=== PATIENT | male | born 1955 | race Caucasian/White ===

== ENCOUNTER → 2018-02-11 09:37 | Outpatient (CLI) | payer MEDICARE, MEDICAID, SELFPAY ==
[2018-02-11 12:24] LABS: Hematocrit 43.1 % (40-54); Hemoglobin 14.3 g/dl (13.0-16.5); Mean Corp Hgb Conc 33.2 g/gl (32-36); Mean Corpuscular Hgb 32.9 pg (27.0-32.0); Mean Corpuscular Volume 99.3 fL (80-94); Mean Platelet Vol. 10.3 fl (6.2-12.0); Platelet Count 223 K/mm3 (150-450); RBC Distribution Width SD 46.9 fl (35.1-43.9); Red Blood Count 4.34 M/mm3 (4.6-6.2); White Blood Count 6.6 K/mm3 (4.4-11.0)
[2018-02-11 12:27] LABS: Scan Indicated on CBC? Y/N NO
[2018-02-11 12:38] LABS: ALB/GLOB Ratio 0.9 RATIO (0.9-2.4); AST(SGOT) 13 U/L (15-37); Alanine Aminotransfer ALT/SGPT 27 U/L (16-61); Albumin, Serum 3.5 g/dL (3.2-5.0); Alkaline Phosphatase 50 U/L (45-117); Anion Gap 6 (5-15); BUN 15 mg/dL (7-18); BUN/Creat Ratio 17.9 RATIO (10-20); Calcium,Total 8.5 mg/dL (8.5-10.1); Chloride 104 mmol/L (98-107); Cholesterol 126 mg/dL (200); Creatinine, Serum 0.84 mg/dL (0.70-1.30); EST Glomerular Filtration Rate 98 mL/min (>60); Est Glom Filt Rate - Afr Amer 118 mL/min (>60); Globulin 3.8 g/dL (2.2-4.2); Glucose 170 mg/dL (74-106); High Density Lipoprotein 27 mg/dL; Potassium 4.2 mmol/L (3.5-5.1); Protein, Total 7.3 g/dL (6.4-8.2); Sodium Level 139 mmol/L (136-145); Thyroid Stim Hormone (TSH) 1.41 uIU/mL (0.358-3.74); Triglycerides 265 mg/dL; Very Low Density Lipoprotein 53 mg/dL (5-40)
== END ==
PROVIDERS: Family Provider Family Medicine; PCP Family Medicine; Visit Provider Family Medicine
DX: E53.8 Deficiency of other specified B group vitamins (principal); I10 Essential (primary) hypertension; E11.9 Type 2 diabetes mellitus without complications
CPT/HCPCS: 36415; 80053; 80061; 84443; 85027

== ENCOUNTER → 2018-11-11 22:34 | Outpatient (CLI) | payer MEDICARE, SELFPAY | PROVIDERS: Family Provider Family Medicine; PCP Family Medicine; Referring Provider Internal Medicine Critical Care Medicine; Visit Provider Internal Medicine Critical Care Medicine | DX: G47.33 Obstructive sleep apnea (adult) (pediatric) (principal) | CPT/HCPCS: 95811 ==

== ENCOUNTER → 2019-03-08 16:33 | Outpatient (CLI) | payer MEDICARE, SELFPAY ==
[2018-11-26 08:00] VITALS: BMI 47.0
--- NOTE | 2019-03-08 16:39 | RAD_ITS ---
STUDY: X-RAY CHEST REASON FOR EXAM: Male, 63 years old. Dyspnea TECHNIQUE: PA and lateral views of the chest. COMPARISON: None. FINDINGS: The lungs are clear and expanded. There is no demonstrated pleural abnormality. Normal size heart. Normal mediastinum and mars. Normal visualized pulmonary arteries. There is atherosclerotic calcification of the aortic arch . There are diffuse degenerative changes of the visualized thoracic spine. Normal visualized ribs, clavicles, and shoulders. There is no demonstrated abnormality of the visualized soft tissue structures of the upper abdomen. RAD/Chest PA and Lateral IMPRESSION: No evidence of acute cardiopulmonary disease. Electronically Signed: Shawn Duenas MD at 4:22 EDT Tel , Service support ,
[2019-03-08 18:18] LABS: BNP,B-Type NATRIURETIC PEPTIDE 9.8 pg/mL (0-100)
[2019-03-08 18:36] LABS: ALB/GLOB Ratio 0.9 RATIO (0.9-2.4); AST(SGOT) 17 U/L (15-37); Alanine Aminotransfer ALT/SGPT 30 U/L (16-61); Albumin, Serum 3.6 g/dL (3.2-5.0); Alkaline Phosphatase 58 U/L (45-117); Anion Gap 5 (5-15); BUN 10 mg/dL (7-18); BUN/Creat Ratio 11.1 RATIO (10-20); Calcium,Total 8.7 mg/dL (8.5-10.1); Chloride 105 mmol/L (98-107); EST Glomerular Filtration Rate 90 mL/min (>60); Est Glom Filt Rate - Afr Amer 109 mL/min (>60); Globulin 3.8 g/dL (2.2-4.2); Glucose 158 mg/dL (74-106); Protein, Total 7.4 g/dL (6.4-8.2); Sodium Level 139 mmol/L (136-145); Thyroid Stim Hormone (TSH) 1.59 uIU/mL (0.358-3.74)
[2019-03-08 18:52] LABS: Hematocrit 42.6 % (40-54); Hemoglobin 14.5 g/dl (13.0-16.5); Mean Corpuscular Hgb 32.4 pg (27.0-32.0); Mean Corpuscular Volume 95.1 fL (80-94); Mean Platelet Vol. 10.1 fl (6.2-12.0); Platelet Count 233 K/mm3 (150-450); RBC Distribution Width CV 12.8 % (11.6-14.6); Red Blood Count 4.48 M/mm3 (4.6-6.2); White Blood Count 8.2 K/mm3 (4.4-11.0)
[2019-03-08 19:34] LABS: Scan Indicated on CBC? Y/N NO
== END ==
PROVIDERS: Family Provider Family Medicine; PCP Family Medicine; Referring Provider Family Medicine; Visit Provider Family Medicine
DX: R06.00 Dyspnea, unspecified (principal); I50.9 Heart failure, unspecified; R07.9 Chest pain, unspecified
CPT/HCPCS: 36415; 71046; 80053; 83880; 84443; 84484; 85027

== ENCOUNTER → 2019-03-10 08:17 | Outpatient (CLI) | payer MEDICARE, SELFPAY ==
[2018-11-26 08:00] VITALS: BMI 47.0
[2019-03-10 10:39] LABS: Iron 77 ug/dL (65-175); Vitamin B12 523 pg/mL (211-911); Vitamin D,25 Hydroxy 27.5 ng/mL (29.95-100.01)
== END ==
PROVIDERS: Family Provider Family Medicine; PCP Family Medicine; Referring Provider Family Medicine; Visit Provider Family Medicine
DX: R53.83 Other fatigue (principal)
CPT/HCPCS: 36415; 82306; 82607; 83540; 84403

== ENCOUNTER → 2019-03-16 06:56 | Outpatient (CLI) | payer MEDICARE, SELFPAY ==
[2018-11-26 08:00] VITALS: BMI 47.0
--- NOTE | 2019-03-16 10:32 | STRESSREP_ITS ---
Stress Test Report Date: 03-16-19 Procedure: Exercise tolerance test/imaging study Indications: Chest pain; CAD; status post PCI Consent: Per the patient Procedure: The patient exercised on a Justin protocol for 3 minutes completing Stage I achieving a peak heart rate of 122 bpm (78 % predicted maximal heart rate) with a peak blood pressure 130/72 mmHg and a peak MET capacity of 4 METs. The baseline ECG demonstrated normal sinus rhythm. The peak exercise ECG demonstrated somatic/motion artifact with no obvious ECG changes at the heart rate achieved. There were no cardiac dysrhythmias pretest, during exercise, or recovery. The functional capacity was considered decreased. There was no complaint of chest discomfort during exercise or recovery. The examination was discontinued secondary to dyspnea and chest discomfort. Impression: 1. Technically adequate (percent predicted maximal heart rate greater than 85%) exercise tolerance test 2. Peak exercise ECG with somatic/motion artifact with no obvious ECG changes at the heart rate achieved 3. There were no cardiac dysrhythmias pretest, during exercise, or recovery 4. Nuclear images pending Myocardial perfusion imaging study: Technique: The patient was injected with 14.6 mCi of technetium 99m Cardiolite and subsequently rest SPECT Cardiolite nuclear imaging was obtained in the horizontal long, vertical long, and short axis views. The patient exercised on a Justin protocol for 3 minutes completing Stage I achieving a peak heart rate of 122 bpm (78 % predicted maximal heart rate) with a peak blood pressure 130/72 mmHg and a peak MET capacity of 4 METs. The patient was injected with 44.7 mCi of technetium 99m Cardiolite and subsequently stress SPECT Cardiolite nuclear imaging was obtained in the horizontal long, vertical long, and short axis views. A gated Cardiolite study at peak stress was obtained. Interpretation: Rest and stress SPECT Cardiolite nuclear imaging status post realignment, normalization, and attenuation correction, demonstrates the appearance of relative uniform tracer uptake and myocardial perfusion appearing within normal limits. There is end systolic thickening and brightening. The gated Cardiolite study demonstrates myocardial thickening and inward wall motion. The reported LVEF is 73 %. Impression: 1. Rest and stress SPECT Cardiolite nuclear imaging demonstrate relative uniform tracer uptake and myocardial perfusion appearing within normal limits at the heart rate achieved, however, myocardial perfusion changes compatible with stress-induced myocardial ischemia at a higher heart rate cannot necessarily be excluded. 2. The gated Cardiolite study reports an LVEF of 73 %. This note was generated with [email or web address] dictation software. It may contain incorrect words, spelling, and punctuation that were not noted in checking the note before signing.
== END ==
PROVIDERS: Family Provider Family Medicine; PCP Family Medicine; Referring Provider Family Medicine; Visit Provider Family Medicine
DX: R07.9 Chest pain, unspecified (principal)
CPT/HCPCS: 78452; 93017; A9500; A4216

== ENCOUNTER 2019-03-22 06:57 | Day surgery (SDC) | payer MEDICARE, SELFPAY ==
[2019-03-17 09:06] VITALS: BMI 48.2
--- NOTE | 2019-03-18 06:10 | HP_ITS ---
HPI HPI Surgical H&P: Yes Details: JUAN LUIS MCCLAIN, is a 63 M who presents to the office today for follow-up visit. He has no significant obstructive coronary artery disease following cardiac catheterization in 2007. He also has a history of hypertension, hyperlipidemia, MARILEE with CPAP therapy, and obesity. He also has preserved left ventricular ejection fraction. After his appointment approximately 1 year ago on 03/12/2018, it was recommended he undergo a echocardiogram and nuclear stress test to evaluate his fatigue. He completed his nuclear stress test yesterday on 03/16/2019, which was noted that an area of myocardial ischemia at a higher heart rate could not necessarily be excluded. He states worsening SOB with exertion. He acknowledges continual chest heaviness that feels like a weight. This is limiting his overall activity. He states a left temporal headache intermittently that improves with Advil or Tylenol. He states palpitations every once in a while. This is usually short lasting. He denies lightheadedness, dizziness, near syncope, or syncopal episodes. He denies edema or claudication issues. He denies orthopnea, PND, fever, chills, blood in urine, blood in stool, myalgia, or unexplainable fatigue. Intake Vital Signs 03/17/19 Height 5 ft 4 in 03/17/19 Weight: 281 lb 03/17/19 Body Mass Index (BMI) 48.2 03/17/19 Blood Pressure 116/71 03/17/19 Blood Pressure Location Lt brachial 03/17/19 Blood Pressure Position Sitting 03/17/19 Respiratory Rate 18 03/17/19 Pulse Rate 80 03/17/19 Pulse Source Monitor 03/17/19 Pulse Ox 95 Intake Visit Reasons: 1 Y FU (moved from [facility]) Steel Rod Buster Required: No Is patient in pain?: No Allergies codeine Allergy (Verified 03/17/19 09:06) PT NOT SURE WHAT HAPPENS finasteride Adverse Reaction (Severe, Verified 03/17/19 09:06) Impotence citalopram Adverse Reaction (Mild, Verified 03/17/19 09:06) fatigue Medications Aspirin [Aspirin, Baby] 81 mg PO DAILY@0800 11/20/15 [History Confirmed 03/17/19] Esomeprazole Mag Trihydrate [Nexium] 40 mg PO DAILY 11/20/15 [History Confirmed 03/17/19] Mometasone Furoate [Nasonex] 2 spray NASAL DAILY 11/20/15 [History Confirmed 03/17/19] Simvastatin [Zocor] 20 mg PO QHS 11/20/15 [History Confirmed 03/17/19] nitroglycerin 0.4 mg sublingual tablet 0.4 mg SUBLINGUAL Q5-15M PRN 10 Days #2880 tab 03/09/18 [History Confirmed 03/17/19] bupropion HCl XL 300 mg 24 hr tablet, extended release 300 mg PO ONCE 30 Days #30 tab 03/12/18 [History Confirmed 03/17/19] cholecalciferol (vitamin D3) 2,000 unit capsule 2,000 unit PO QDAY 03/12/18 [History Confirmed 03/17/19] loratadine 10 mg tablet 10 mg PO QDAY PRN 30 Days #30 tab 03/12/18 [History Confirmed 03/17/19] sitagliptin 50 mg-metformin 500 mg tablet 1 tab PO BID 03/12/18 [History Confirmed 03/17/19] tamsulosin 0.4 mg capsule 0.4 mg PO QHS 30 Days #30 cap 03/12/18 [History Confirmed 03/17/19] tizanidine 4 mg tablet 4 mg PO Q8H PRN 03/12/18 [History Confirmed 03/17/19] trazodone 100 mg tablet 100 mg PO QHS 30 Days #30 tab 03/12/18 [History Confirmed 03/17/19] furosemide 20 mg tablet 10 mg PO QDAY tab 03/17/19 [History Confirmed 03/17/19] sertraline 100 mg tablet 50 mg PO DAILY tab 03/17/19 [History Confirmed 03/17/19] PFSH Medical History Essential (primary) hypertension (Chronic) Ascending aorta dilatation (Chronic) Carotid bruit (Chronic) Nonrheumatic mitral (valve) prolapse (Chronic) Atherosclerotic heart disease of [place] coronary artery without angina pectoris (Chronic) HLD (hyperlipidemia) (Chronic) Obstructive sleep apnea (Chronic) Type 2 diabetes mellitus (Chronic) Hypokalemia (Resolved) Surgical History History of left heart catheterization (Resolved) History of rectal surgery (Resolved) Hx of LASIK (Resolved) Hx of fracture of leg (Resolved) Hx of hand surgery (Resolved) Hx of left cataract extraction (Resolved ~01/2015) Family History Father CVA (cerebral vascular accident) Mother CAD (coronary artery disease) Myocardial infarction Alzheimers disease Brother Myocardial infarction Heart disease Social History Smoking Status: Former smoker alcohol intake: never substance use type: does not use what type of physical activity do you participate in: none seatbelt use: always ROS Const Const: Positive for fatigue and headache(s); negative for weakness, body ache, fever(s) or chills ENT ENT: Positive for headache(s); negative for dizziness Cardio Chest Pain: Yes Palpitations: Yes Edema: None Muscle aches with walking: None Resp Respiratory: Positive for SOB with activity; negative for SOB at rest, SOB orthopnea\SOB lying down or paroxysmal nocturnal dyspnea GI GI: Negative nausea, vomiting blood/hematemesis, bright, red blood in stools or black,tarry stools : Negative for hematuria or frequent nighttime urination/ nocturia Musc Musc: Negative for muscle aches/ myalgia Skin Skin: Negative non-healing lesions or rash Neuro Neuro: Positive for headache(s); negative for dizziness, lightheadedness, near syncope, syncope, orthostatic symptoms or weakness Endo Endo: Positive for fatigue Allergy Allergy/Immunology: Negative for rash Cardiology Exam Const Appearance: cooperative, healthy appearing, comfortable and no acute distress Nutritional Appearance: well nourished and obese Orientation: alert, awake and oriented x3 Head Head: normal to inspection Ears: hearing grossly normal bilaterally Nose: external nose normal Face and Sinus: face symmetric Mouth: oral mucosae normal Eyes General: appearance normal, both eyes and all related structures Eyelids: eyelids normal EOM: EOM intact bilaterally Neck Neck: normal visual inspection and no JVD Carotids: normal carotid upstroke Chest Chest inspection: normal inspection of the chest, symmetric chest movement and normal respiratory effort; negative cough Auscultation: Bilateral: Clear to Auscultation Cardio Rate: regular rate Rhythm: regular rhythm Heart sounds: S1 normal and S2 normal; negative rub, gallop or murmur GI GI: normal to inspection and obese Neuro General: alert, awake, oriented x3 and CN's II-XI intact bilaterally Skin Skin: no rashes or lesions noted Extremities Pulses: Normal: Right Posterior Tibial Pulse, Left Posterior Tibial Pulse, Right Radial Pulse, Left Radial Pulse Lower Extremity Edema: None: Bilateral Psych Psychological: normal affect Assessment & Plan 1. Atherosclerosis of [place] coronary artery of [place] heart without angina pectoris I25.10 Plan - LLOYD Anthony His most recent stress test showed that an area of myocardial ischemia at a high workload could not be excluded. He did not complete echocardiogram that was recommended 1 year ago. Due to his worsening shortness of breath on exertion and chest heaviness in conjunction with his abnormal stress test it was recommend that he proceed with a left heart catheterization for further evaluation. This was discussed further with Dr. Hutton and plan will be to undergo a left heart catheterization. Based on results further recommendation will be made. Nilam mixon [phone] is best contact at this time. Orders Orders: Left Heart Cath/COR/LV Percut 03/17/19 2. Essential hypertension I10 Plan - LLOYD Anthony Patient's blood pressure is well-controlled. We will continue to monitor. We will not make any medication regimen changes. 3. Pure hypercholesterolemia E78.00 Plan - LLOYD Anthony Lipid panel from January 2018 showed cholesterol: 126, HDL: 27, LDL: 46, and triglyceride: 265. He will continue his current statin medication. Plan Detail Additional Comments - LLOYD Anthony Discussed the above patient with Dr. Hutton in Dr. Han's absence, he agrees with the plan of care. Thank you for allowing us to participate in the patients plan of care, if you have any questions please do not hesitate to call. This note was generated using a voice recognition system and there may be incorrect words, spelling or punctuation that were not noted when reviewing the office note prior to saving. Follow Up 12 Months ([employer]) Coding Level of Care Code Off vis,est,level 4 Diagnoses Atherosclerosis of [place] coronary artery of [place] heart without angina pectoris I25.10 ??[place] vs. transplanted heart: [place] heart Essential hypertension I10 ??Hypertension type: essential hypertension Pure hypercholesterolemia E78.00 ??Hyperlipidemia type: pure hypercholesterolemia Coding Level of Care Code Off vis,est,level 4 Diagnoses Atherosclerosis of [place] coronary artery of [place] heart without angina pectoris I25.10 ??[place] vs. transplanted heart: [place] heart Essential hypertension I10 ??Hypertension type: essential hypertension Pure hypercholesterolemia E78.00 ??Hyperlipidemia type: pure hypercholesterolemia Supplemental Info Supplemental Information Nuclear stress test from 03/16/2019: Impression: 1. Technically adequate (percent predicted maximal heart rate greater than 85%) exercise tolerance test 2. Peak exercise ECG with somatic/motion artifact with no obvious ECG changes at the heart rate achieved 3. There were no cardiac dysrhythmias pretest, during exercise, or recovery 4. Nuclear images pending Impression: 1. Rest and stress SPECT Cardiolite nuclear imaging demonstrate relative uniform tracer uptake and myocardial perfusion appearing within normal limits at the heart rate achieved, however, myocardial perfusion changes compatible with stress-induced myocardial ischemia at a higher heart rate cannot necessarily be excluded. 2. The gated Cardiolite study reports an LVEF of 73 %. Echocardiogram from 06/23/2011: Interpretation summary Left ventricular systolic function is normal. The estimated ejection fraction 65%. The left atrium is mildly enlarged. Trivial mitral valve insufficiency. Mild (1+) tricuspid valve insufficiency. Aortic sclerosis, no stenosis. Trivial aortic valve insufficiency. Trivial pulmonic valve insufficiency. Right ventricular systolic pressure estimated to be 29 mmHg. Heart catheterization from 06/12/2008: CONCLUSION 1. Angiographically normal left main coronary artery. 2. Left anterior descending artery which is angiographically normal. 3. Left circumflex artery which is large and dominant with no significant stenosis. 4. Right coronary artery which is nondominant with no high?grade stenosis. 5. Preserved left ventricular ejection fraction. Labs LDL Cholesterol 46 mg/dL (0-130) 02/11/18 HDL Cholesterol 27 mg/dL (40-) L 02/11/18 Triglycerides 265 mg/dL (-199) H 02/11/18 VLDL Cholesterol 53 mg/dL (5-40) H 02/11/18 Diagnostics Stress Test Nuclear Medicine 03/16/19 Stress Test 03/16/19 Chest X-Ray 03/08/19
[2019-03-21 08:39] VITALS: BMI 48.2
--- NOTE | 2019-03-31 14:28 | HP.PCM_ITS ---
History and Physical Date of Admission: 03/22/19 [facility] Surgical H&P: Yes Details: JUAN LUIS MCCLAIN, is a 63 M who presents to the office today for follow-up visit. He has no significant obstructive coronary artery disease following cardiac catheterization in 2007. He also has a history of hypertension, hyperlipidemia, MARILEE with CPAP therapy, and obesity. He also has preserved left ventricular ejection fraction. After his appointment approximately 1 year ago on 03/12/2018, it was recommended he undergo a echocardiogram and nuclear stress test to evaluate his fatigue. He completed his nuclear stress test yesterday on 03/16/2019, which was noted that an area of myocardial ischemia at a higher heart rate could not necessarily be excluded. He states worsening SOB with exertion. He acknowledges continual chest heaviness that feels like a weight. This is limiting his overall activity. He states a left temporal headache intermittently that improves with Advil or Tylenol. He states palpitations every once in a while. This is usually short lasting. He denies lightheadedness, dizziness, near syncope, or syncopal episodes. He denies edema or claudication issues. He denies orthopnea, PND, fever, chills, blood in urine, blood in stool, myalgia, or unexplainable fatigue. 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 Is patient in pain?: No Allergies codeine Allergy (Verified 03/17/19 09:06) PT NOT SURE WHAT HAPPENS finasteride Adverse Reaction (Severe, Verified 03/17/19 09:06) Impotence citalopram Adverse Reaction (Mild, Verified 03/17/19 09:06) fatigue Medications Aspirin [Aspirin, Baby] 81 mg PO DAILY@0800 11/20/15 [History Confirmed 03/17/19] Esomeprazole Mag Trihydrate [Nexium] 40 mg PO DAILY 12/29/15 [History Confirmed 03/17/19] Mometasone Furoate [Nasonex] 2 spray NASAL DAILY 11/20/15 [History Confirmed 03/17/19] Simvastatin [Zocor] 20 mg PO QHS 11/20/15 [History Confirmed 03/17/19] nitroglycerin 0.4 mg sublingual tablet 0.4 mg SUBLINGUAL Q5-15M PRN 10 Days #2880 tab 03/09/18 [History Confirmed 03/17/19] bupropion HCl XL 300 mg 24 hr tablet, extended release 300 mg PO ONCE 30 Days #30 tab 03/12/18 [History Confirmed 03/17/19] cholecalciferol (vitamin D3) 2,000 unit capsule 2,000 unit PO QDAY 03/12/18 [History Confirmed 03/17/19] loratadine 10 mg tablet 10 mg PO QDAY PRN 30 Days #30 tab 03/12/18 [History Confirmed 03/17/19] sitagliptin 50 mg-metformin 500 mg tablet 1 tab PO BID 03/12/18 [History Confirmed 03/17/19] tamsulosin 0.4 mg capsule 0.4 mg PO QHS 30 Days #30 cap 03/12/18 [History Confirmed 03/17/19] tizanidine 4 mg tablet 4 mg PO Q8H PRN 03/12/18 [History Confirmed 03/17/19] trazodone 100 mg tablet 100 mg PO QHS 30 Days #30 tab 03/12/18 [History Confirmed 03/17/19] furosemide 20 mg tablet 10 mg PO QDAY tab 03/17/19 [History Confirmed 03/17/19] sertraline 100 mg tablet 50 mg PO DAILY tab 03/17/19 [History Confirmed 03/17/19] PFSH Medical History Essential (primary) hypertension (Chronic) Ascending aorta dilatation (Chronic) Carotid bruit (Chronic) Nonrheumatic mitral (valve) prolapse (Chronic) Atherosclerotic heart disease of [place] coronary artery without angina pectoris (Chronic) HLD (hyperlipidemia) (Chronic) Obstructive sleep apnea (Chronic) Type 2 diabetes mellitus (Chronic) Hypokalemia (Resolved) Surgical History History of left heart catheterization (Resolved) History of rectal surgery (Resolved) Hx of LASIK (Resolved) Hx of fracture of leg (Resolved) Hx of hand surgery (Resolved) Hx of left cataract extraction (Resolved ~01/2015) Family History Father CVA (cerebral vascular accident) Mother CAD (coronary artery disease) Myocardial infarction Alzheimers disease Brother Myocardial infarction Heart disease Social History Smoking Status: Former smoker alcohol intake: never substance use type: does not use what type of physical activity do you participate in: none seatbelt use: always ROS Const Const: Positive for fatigue and headache(s); negative for weakness, body ache, fever(s) or chills ENT ENT: Positive for headache(s); negative for dizziness Cardio Chest Pain: Yes Palpitations: Yes Edema: None Muscle aches with walking: None Resp Respiratory: Positive for SOB with activity; negative for SOB at rest, SOB orthopnea\SOB lying down or paroxysmal nocturnal dyspnea GI GI: Negative nausea, vomiting blood/hematemesis, bright, red blood in stools or black,tarry stools : Negative for hematuria or frequent nighttime urination/ nocturia Musc Musc: Negative for muscle aches/ myalgia Skin Skin: Negative non-healing lesions or rash Neuro Neuro: Positive for headache(s); negative for dizziness, lightheadedness, near syncope, syncope, orthostatic s ymptoms or weakness Endo Endo: Positive for fatigue Allergy Allergy/Immunology: Negative for rash Cardiology Exam Const Appearance: cooperative, healthy appearing, comfortable and no acute distress Nutritional Appearance: well nourished and obese Orientation: alert, awake and oriented x3 Head Head: normal to inspection Ears: hearing grossly normal bilaterally Nose: external nose normal Face and Sinus: face symmetric Mouth: oral mucosae normal Eyes General: appearance normal, both eyes and all related structures Eyelids: eyelids normal EOM: EOM intact bilaterally Neck Neck: normal visual inspection and no JVD Carotids: normal carotid upstroke Chest Chest inspection: normal inspection of the chest, symmetric chest movement and normal respiratory effort; negative cough Auscultation: Bilateral: Clear to Auscultation Cardio Rate: regular rate Rhythm: regular rhythm Heart sounds: S1 normal and S2 normal; negative rub, gallop or murmur GI GI: normal to inspection and obese Neuro General: alert, awake, oriented x3 and CN's II-XI intact bilaterally Skin Skin: no rashes or lesions noted Extremities Pulses: Normal: Right Posterior Tibial Pulse, Left Posterior Tibial Pulse, Right Radial Pulse, Left Radial Pulse Lower Extremity Edema: None: Bilateral Psych Psychological: normal affect Assessment & Plan 1. Atherosclerosis of [place] coronary artery of [place] heart without angina pectoris I25.10 Plan - LLOYD Anthony His most recent stress test showed that an area of myocardial ischemia at a high workload could not be excluded. He did not complete echocardiogram that was recommended 1 year ago. Due to his worsening shortness of breath on exertion and chest heaviness in conjunction with his abnormal stress test it was recommend that he proceed with a left heart catheterization for further evaluation. This was discussed further with Dr. Hutton and plan will be to undergo a left heart catheterization. Based on results further recommendation will be made. Nilam at [phone] is best contact at this time. Orders Orders: Left Heart Cath/COR/LV Percut 03/17/19 2. Essential hypertension I10 Plan - LLOYD Anthony Patient's blood pressure is well-controlled. We will continue to monitor. We will not make any medication regimen changes. 3. Pure hypercholesterolemia E78.00 Plan - LLOYD Anthony Lipid panel from January 2018 showed cholesterol: 126, HDL: 27, LDL: 46, and triglyceride: 265. He will continue his current statin medication. Plan Detail Additional Comments - LLOYD Anthony Discussed the above patient with Dr. Hutton in Dr. Han's absence, he agrees with the plan of care. Thank you for allowing us to participate in the patients plan of care, if you have any questions please do not hesitate to call. This note was generated using a voice recognition system and there may be incorrect words, spelling or punctuation that were not noted when reviewing the office note prior to saving. 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 transplanted heart: [place] heart Essential hypertension I10 ??Hypertension type: essential hypertension Pure hypercholesterolemia E78.00 ??Hyperlipidemia type: pure hypercholesterolemia Coding Level of Care Code Off vis,est,level 4 Diagnoses Atherosclerosis of [place] coronary artery of [place] heart without angina pectoris I25.10 ??[place] vs. transplanted heart: [place] heart Essential hypertension I10 ??Hypertension type: essential hypertension Pure hypercholesterolemia E78.00 ??Hyperlipidemia type: pure hypercholesterolemia Supplemental Info Supplemental Information Nuclear stress test from 03/16/2019: Impression: 1. Technically adequate (percent predicted maximal heart rate greater than 85%) exercise tolerance test 2. Peak exercise ECG with somatic/motion artifact with no obvious ECG changes at the heart rate achieved 3. There were no cardiac dysrhythmias pretest, during exercise, or recovery 4. Nuclear images pending Impression: 1. Rest and stress SPECT Cardiolite nuclear imaging demonstrate relative uniform tracer uptake and myocardial perfusion appearing within normal limits at the heart rate achieved, however, myocardial perfusion changes compatible with stress-induced myocardial ischemia at a higher heart rate cannot necessarily be excluded. 2. The gated Cardiolite study reports an LVEF of 73 %. Echocardiogram from 06/23/2011: Interpretation summary Left ventricular systolic function is normal. The estimated ejection fraction 65%. The left atrium is mildly enlarged. Trivial mitral valve insufficiency. Mild (1+) tricuspid valve insufficiency. Aortic sclerosis, no stenosis. Trivial aortic valve insufficiency. Trivial pulmonic valve insufficiency. Right ventricular systolic pressure estimated to be 29 mmHg. Heart catheterization from 06/12/2008: CONCLUSION 1. Angiographically normal left main coronary artery. 2. Left anterior descending artery which is angiographically normal. 3. Left circumflex artery which is large and dominant with no significant stenosis. 4. Right coronary artery which is nondominant with no high?grade stenosis. 5. Preserved left ventricular ejection fraction. Labs LDL Cholesterol 46 mg/dL (0-130) 02/11/18 HDL Cholesterol 27 mg/dL (40-) L 02/11/18 Triglycerides 265 mg/dL (-199) H 02/11/18 VLDL Cholesterol 53 mg/dL (5-40) H 02/11/18 Diagnostics Stress Test Nuclear Medicine 03/16/19 Stress Test 03/16/19 Chest X-Ray 03/08/19 03/21/19 1159 <Electronically signed by Lane DESAI> Date: Time: Lane DESAI I have re-examined the patient on March 22, 2019. There are no clinical changes since date of exam in the office.
--- NOTE | 2019-04-27 14:55 | CL.D_ITS ---
Patient Name: JUAN LUIS MCCLAIN Study Date: 03/22/2019 Performing: Bar Hutton MD Ht: 64.17 inches 163 cm : 1955 Wt: 279.99 lbs 127 kg Age: 63 Gender: male BSA: 2.26 PROCEDURE(S) PERFORMED CG99-RBU/COR/LV CLINICAL PROFILE AND INDICATIONS Indications: Suspected CAD Heart Failure: None Stress/Imaging Stress Test w/SPECT MPI: Yes Result: Positive Intermediate RiskStress Test with SP ECT MPI: Positive Intermediate Risk CAD Presentations: Unstable angina. CONCLUSIONS Non obstructive coronary arteries Normal LV size, wall motion,and systolic function Mild to moderate Aortic stenosis cannot be excluded RECOMMENDATIONS 2d echo to evaluate aortic valve DESCRIPTION OF PROCEDURE The patient arrived to the procedure lab. The risks and benefits of the procedure as well as a full d escription of our services here and current unavailability of surgical backup were fully explained to the patient and/or their significant other prior to the catheterization. The Timeout was completed, verifying the correct patient and procedure. The patient's procedural site was prepped and draped in the usual fashion. Local anesthetic was given subcutaneously to right radial region with Lidocaine 2% . Using a modified Seldinger technique, arterial access was obtained via the right radial artery, a 6 Fr sheath was inserted. Left Coronary Artery selective angiography was performed in multiple views u sing a 5 Fr. JL3.5 catheter. Right Coronary Artery selective angiography was then performed in multip le views using a 5 Fr. JR 4 catheter. Left Ventriculography was performed in CUELLAR projection using a 5 Fr. JR4. LV to AO pullback pressures were then recorded.The arterial sheath was pulled and a TR Band was applied for hemostasis w/ 12ml air CORONARY ANGIOGRAPHY DOMINANCE: Left Dominant LEFT HEART ASSESSMENT Left Ventricular Ejection Fraction: by LV Gram 65 % Normal LV wall motion Normal Left Ventricular systolic function LEFT MAIN: Angiographically normal LEFT ANTERIOR DECENDING ARTERY: Mild luminal irregularities CIRCUMFLEX ARTERY: Angiographically normal RIGHT CORONARY ARTERY: Mild luminal irregularities VALVE FINDINGS: Aortic Valve Stenosis - possible mild to moderate with a peak to peak gradient of about 20mmHg. Th is could be artifactual and a 2d echo is recommended to evaluate this further. No Mitral Insufficency COMPLICATIONS No Complications PROCEDURE MEDICATIONS Versed 1 mg IV Fentanyl 50 mcg IV Oxygen: 2 L/min via nasal cannula Heparin IA 03/22/2019 08:55:35 Verapamil 2.5mg, Ntg 100mcgs, 3000 units of Heparin IA 03/22/2019 09:13:47 IV Bolus: .9 NaCl 250 ml total 03/22/2019 09:19:58 SUMMARY OF HEMODYNAMIC DATA Time AIR REST ECG 07:16:51 LV 119/-7, -2 09:16:05 LV 114/-3, 8 09:16:11 LVp 127/-14, 6 09:16:29 AOp 89/58 (69) 09:16:34 AO 90/58 (70) SA 09:16:42 LV 136/-8, 15 09:26:21 LV 134/-10, 15 09:26:28 LV 127/-6, 14 09:28:25 LVp 129/-7, 14 09:28:34 AOp 102/59 (76) 09:28:39 Signed By Bar Hutton MD On 03/22/2019 10:08:07 AM Bar Hutton MD
== END 2019-03-22 12:09 | disposition home or self-care (01) ==
PROVIDERS: Family Provider Family Medicine; PCP Family Medicine; Referring Provider Internal Medicine Cardiovascular Disease; Visit Provider Internal Medicine Cardiovascular Disease
DX: I25.10 Atherosclerotic heart disease of native coronary artery without angina pectoris (principal); I10 Essential (primary) hypertension; E78.00 Pure hypercholesterolemia, unspecified; I07.1 Rheumatic tricuspid insufficiency; I70.0 Atherosclerosis of aorta; R94.39 Abnormal result of other cardiovascular function study; R06.02 Shortness of breath; G47.33 Obstructive sleep apnea (adult) (pediatric); E11.9 Type 2 diabetes mellitus without complications; R09.89 Other specified symptoms and signs involving the circulatory and respiratory systems; Z87.891 Personal history of nicotine dependence; Z88.5 Allergy status to narcotic agent; Z79.82 Long term (current) use of aspirin
CPT/HCPCS: 93458; 99152; 99153; J7040; Q9967; C1769; C1894

== ENCOUNTER → 2019-04-06 08:47 | Outpatient (CLI) | payer MEDICARE, SELFPAY ==
[2019-03-25 10:06] VITALS: BMI 48.2
[2019-04-05 13:19] VITALS: BMI 47.5
[2019-04-06 09:45] VITALS: PULSE 101; PULSE 102; PULSE 103; PULSE 88; PULSE 89; PULSE 99; O2SAT 95; O2SAT 96; O2SAT 97
--- NOTE | 2019-04-06 15:12 | PCM.PSN.6M ---
PSN 6 Minute Walk Test - 6 Minute Walk Test 6 Minute Walk Test: 6 Minute Walk Test PSN:6-Minute Walk Test Start: 04/06/19 09:44 Freq: Status: Active Protocol: [id number].6MINW Document 04/06/19 09:45 RICCI (Rec: 04/06/19 09:51 RICCI [id number]) 6 Minute Walk Test Date Performed 04/06/19 Time Performed 09:00 Height 5 ft 5 in Weight: 122.924 kg Weight in Pounds 271.[address]: Estevan Monsivais Assistive device used: None Pre-test Oxygen Delivery Method Room Air Pulse Ox (%) 97 Pulse Rate (60-100 beats/min) 88 Dyspnea Bianka Scale (0-10) 1 Exertion Bianka Scale (6-20) 6 1st minute Oxygen Delivery Method Room Air Pulse Ox (%) 96 Pulse Rate (60-100 beats/min) 102 H 2nd minute Oxygen Delivery Method Room Air Pulse Ox (%) 95 Pulse Rate (60-100 beats/min) 101 H 3rd minute Oxygen Delivery Method Room Air Pulse Ox (%) 95 Pulse Rate (60-100 beats/min) 99 Number of Rests Taken 1 4th minute Oxygen Delivery Method Room Air Pulse Ox (%) 97 Pulse Rate (60-100 beats/min) 103 H 5th minute Oxygen Delivery Method Room Air Pulse Ox (%) 95 Pulse Rate (60-100 beats/min) 99 6th minute Oxygen Delivery Method Room Air Pulse Ox (%) 96 Pulse Rate (60-100 beats/min) 103 H Dyspnea Bianka Scale (0-10) 4 Exertion Bianka Scale (6-20) 13 Post-test Oxygen Delivery Method Room Air Pulse Ox (%) 97 Pulse Rate (60-100 beats/min) 89 Full Laps Walked 10 Partial Lap, Number of Tiles Walked 10 Total Distance Walked (ft) 600 - Interpretation Interpretation: The patient was able to ambulate 600 feet over the course of 6 minutes on room air with the assistance of one break, but no assistive devices. Patient experienced no significant desaturation or tachycardia during testing. These findings are consistent with a musculoskeletal limitation exercise tolerance. - Recommendations Recommendations: No supplemental oxygen is indicated at this time.
== END ==
PROVIDERS: Family Provider Family Medicine; PCP Family Medicine; Referring Provider Nurse Practitioner Acute Care; Visit Provider Nurse Practitioner Acute Care
DX: R06.00 Dyspnea, unspecified (principal)
CPT/HCPCS: 94618

== ENCOUNTER → 2019-04-13 10:48 | Outpatient (CLI) | payer MEDICARE, SELFPAY ==
[2019-03-25 10:06] VITALS: BMI 48.2
[2019-04-11 09:23] VITALS: BMI 46.5
--- NOTE | 2019-04-13 10:50 | ECHOCS_ITS ---
Reason For Study: CAD/ASHD Procedure This was a 2D Doppler, Color Flow transthoracic echocardiogram. Exam performed in department. Left Ventricle Normal LV size. Left ventricular systolic function is normal. The estimated ejection fraction is 60 %. Stage 1 diastolic dysfunction. No regional wall motion abnormalities noted. Right Ventricle Normal RV size. Normal systolic function. Atria Normal left atrium. Normal right atrium. Mitral Valve Normal mitral valve. Tricuspid Valve The tricuspid valve is not well visualized. Aortic Valve The aortic valve is not well visualized. Pulmonic Valve The pulmonic valve is not well visualized. Great Vessels Normal aortic root. The pulmonary artery is normal size. Normal inferior vena cava. Pericardium/Pleural No pericardial effusion. Medication Diluted definity 3ml given slow IV push to enhance endocardial definition. MMode/2D Measurements & Calculations LVIDd: 4.7 cm IVSd: 1.1 cm Ao root diam: 3.1 cm LVIDs: 3.1 cm LVPWd: 0.97 cm RVDd: 3.9 cm FS: 33.0 % LAV(MOD-bp): 31.9 ml LVAd ap4: 29.1 cm2 SV(MOD-sp4): 56.1 ml LAV(MOD-bp) Indexed: 14.4 ml/m2 EDV(MOD-sp4): 86.9 ml LAV(MOD-sp2): 37.1 ml EDV(sp4-el): 89.2 ml LAV(MOD-sp4): 26.4 ml LVAs ap4: 15.6 cm2 ESV(MOD-sp4): 30.8 ml ESV(sp4-el): 32.0 ml EF(MOD-sp4): 64.6 % EF(sp4-el): 64.1 % SV(sp4-el): 57.2 ml LA A4 area: 13.3 cm2 LA dimension(2D): 3.2 cm RA A4 area: 15.0 cm2 Doppler Measurements & Calculations MV E max tu: 63.0 cm/sec Lat Peak E' Tu: 7.6 cm/sec Med Peak E' Tu: 5.0 cm/sec MV A max tu: 83.4 cm/sec E/E' lat: 8.3 E/E' med: 12.5 MV E/A: 0.76 Ao V2 max: 168.9 cm/sec LV V1 max: 136.6 cm/sec PA V2 max: 119.1 cm/sec Ao max P.4 mmHg LV V1 max P.5 mmHg Ao V2 mean: 107.2 cm/sec Ao mean P.3 mmHg Ao V2 VTI: 26.8 cm TR max tu: 236.7 cm/sec TR max P.4 mmHg Interpretation Summary Normal LV size. Left ventricular systolic function is normal. The estimated ejection fraction is 60 %. Stage 1 diastolic dysfunction. Contrast injection was performed. Ordering Physician: Guillermo Han Referring Physician: Chin Ackerman Performed By: Kylie Dent, PINKY, RVT
== END ==
PROVIDERS: Family Provider Family Medicine; PCP Family Medicine; Referring Provider Nurse Practitioner Acute Care; Visit Provider Nurse Practitioner Acute Care
DX: I34.1 Nonrheumatic mitral (valve) prolapse (principal)
CPT/HCPCS: 93306; Q9957; A4216; C8929

== ENCOUNTER → 2019-05-03 08:55 | Outpatient (CLI) | payer MEDICARE, SELFPAY ==
[2019-04-11 09:23] VITALS: BMI 46.5
--- NOTE | 2019-05-03 09:00 | CT_ITS ---
STUDY: CT CHEST WITHOUT CONTRAST REASON FOR EXAM: Male, 64 years old. Shortness of breath RADIATION DOSAGE (If Supplied By Facility): DLP = ( 740.12 ) mGycm TECHNIQUE: Transaxial imaging was performed without the administration of intravenous contrast material. Coronal and sagittal reformatted images were created. Individualized dose optimization techniques were used for this CT. COMPARISON: None FINDINGS: There are no pulmonary infiltrates or pleural effusions. There is a right lung base 1.3 cm nodule with central calcification, consistent in appearance with granuloma. There is no pneumothorax. The heart and pericardium are within normal limits. There is no thoracic lymphadenopathy. A right hilar calcified lymph node is present. There is no evidence of thoracic aortic aneurysm. Images through the upper abdomen demonstrate no significant abnormality. There are no destructive osseous lesions. CT/Chest without Contrast IMPRESSION: Unremarkable noncontrast CT of the chest. Right lung base granuloma. Electronically Signed: Kenneth Sol, at 21:19 EDT Tel , Service support ,
== END ==
PROVIDERS: Family Provider Family Medicine; PCP Family Medicine; Referring Provider Surgery; Visit Provider Surgery
DX: R06.02 Shortness of breath (principal); K44.9 Diaphragmatic hernia without obstruction or gangrene
CPT/HCPCS: 71250

== ENCOUNTER → 2019-06-29 14:41 | Outpatient (CLI) | payer MEDICARE, SELFPAY ==
[2019-04-11 09:23] VITALS: BMI 46.5
== END ==
PROVIDERS: Family Provider Family Medicine; PCP Family Medicine; Visit Provider Nurse Practitioner Acute Care
DX: Z46.89 Encounter for fitting and adjustment of other specified devices (principal)

== ENCOUNTER → 2020-04-10 08:57 | Outpatient (CLI) | payer MEDICARE, SELFPAY ==
[2020-03-13 08:06] VITALS: BMI 46.3
[2020-04-10 10:20] LABS: Hematocrit 41.7 % (40-54); Hemoglobin 13.6 g/dL (13.0-16.5); Mean Corp Hgb Conc 32.6 g/dL (32-36); Mean Corpuscular Hgb 32.1 pg (27.0-32.0); Mean Corpuscular Volume 98.3 fL (80-94); Mean Platelet Vol. 10.1 fl (6.2-12.0); Platelet Count 235 K/mm3 (150-450); RBC Distribution Width CV 12.9 % (11.6-14.6); RBC Distribution Width SD 46.1 fl (35.1-43.9); Red Blood Count 4.24 M/mm3 (4.6-6.2); White Blood Count 7.7 K/mm3 (4.4-11.0)
[2020-04-10 10:36] LABS: Vitamin B12 481 pg/mL (211-911); Vitamin D,25 Hydroxy 62.5 ng/mL
[2020-04-10 10:37] LABS: BNP,B-Type NATRIURETIC PEPTIDE 9.8 pg/mL (0-100)
[2020-04-10 10:47] LABS: AST(SGOT) 21 U/L (15-37); Alanine Aminotransfer ALT/SGPT 31 U/L (16-61); Albumin, Serum 3.6 g/dL (3.2-5.0); Alkaline Phosphatase 61 U/L (45-117); Anion Gap 7 (5-15); BUN 17 mg/dL (7-18); BUN/Creat Ratio 20.9 RATIO (10-20); Calcium,Total 9.5 mg/dL (8.5-10.1); Chloride 105 mmol/L (98-107); Cholesterol 129 mg/dL (200); Creatinine, Serum 0.81 mg/dL (0.70-1.30); EST Glomerular Filtration Rate 101 mL/min (>60); Est Glom Filt Rate - Afr Amer 122 mL/min (>60); Globulin 3.6 g/dL (2.2-4.2); Glucose 184 mg/dL (74-106); High Density Lipoprotein 29 mg/dL; PSA,Total - Annual Screen 0.22 ng/mL (0.00-4.00); Potassium 4.1 mmol/L (3.5-5.1); Protein, Total 7.2 g/dL (6.4-8.2); Sodium Level 139 mmol/L (136-145); Thyroid Stim Hormone (TSH) 1.55 uIU/mL (0.358-3.74); Triglycerides 200 mg/dL; Very Low Density Lipoprotein 40 mg/dL (5-40)
== END ==
PROVIDERS: PCP Family Medicine; Visit Provider Family Medicine
DX: E56.9 Vitamin deficiency, unspecified (principal); E11.9 Type 2 diabetes mellitus without complications; N40.0 Benign prostatic hyperplasia without lower urinary tract symptoms; I50.9 Heart failure, unspecified; Z12.5 Encounter for screening for malignant neoplasm of prostate; E53.8 Deficiency of other specified B group vitamins
CPT/HCPCS: 36415; 80053; 80061; 82306; 82607; 83880; 84153; 84443; 85027; G0103

== ENCOUNTER → 2020-06-26 09:39 | Outpatient (CLI) | payer MEDICARE, SELFPAY ==
[2020-03-13 08:06] VITALS: BMI 46.3
[2020-06-26 12:30] LABS: Erythrocyte Sedimentation Rate 14 mm/hr (0-20)
[2020-06-26 12:33] LABS: Hematocrit 40.2 % (40-54); Hemoglobin 13.1 g/dL (13.0-16.5); Mean Corp Hgb Conc 32.6 g/dL (32-36); Mean Corpuscular Hgb 33.6 pg (27.0-32.0); Mean Corpuscular Volume 103.1 fL (80-94); Mean Platelet Vol. 10.1 fl (6.2-12.0); Platelet Count 216 K/mm3 (150-450); RBC Distribution Width CV 13.1 % (11.6-14.6); RBC Distribution Width SD 48.4 fl (35.1-43.9); White Blood Count 5.9 K/mm3 (4.4-11.0)
[2020-06-26 12:46] LABS: Vitamin B12 604 pg/mL (211-911); Vitamin D,25 Hydroxy 67.1 ng/mL
[2020-06-26 12:55] LABS: ALB/GLOB Ratio 0.9 RATIO (0.9-2.4); AST(SGOT) 14 U/L (15-37); Alanine Aminotransfer ALT/SGPT 27 U/L (16-61); Albumin, Serum 3.3 g/dL (3.2-5.0); Alkaline Phosphatase 58 U/L (45-117); Anion Gap 5 (5-15); BUN 11 mg/dL (7-18); BUN/Creat Ratio 11.9 RATIO (10-20); CRP 3.66 mg/L (0.0-3.0); Calcium,Total 8.4 mg/dL (8.5-10.1); Chloride 107 mmol/L (98-107); Creatinine, Serum 0.93 mg/dL (0.70-1.30); EST Glomerular Filtration Rate 86 mL/min (>60); Est Glom Filt Rate - Afr Amer 104 mL/min (>60); Ferritin 49 ng/mL (26-388); Globulin 3.5 g/dL (2.2-4.2); Glucose 287 mg/dL (74-106); Iron 62 ug/dL (65-175); Magnesium 2.2 mg/dL (1.6-2.6); Potassium 4.1 mmol/L (3.5-5.1); Protein, Total 6.8 g/dL (6.4-8.2); Sodium Level 139 mmol/L (136-145); Thyroid Stim Hormone (TSH) 0.98 uIU/mL (0.358-3.74)
[2020-06-27 14:39] LABS: ANTINUCLEAR ANTIBODIES DIRECT Negative (Negative)
== END ==
LOC: MFPLAB 09:42
PROVIDERS: PCP Family Medicine; Referring Provider Family Medicine; Visit Provider Family Medicine
DX: G57.93 Unspecified mononeuropathy of bilateral lower limbs (principal)
CPT/HCPCS: 36415; 80053; 82306; 82607; 82728; 83540; 83735; 84443; 85027; 85652; 86038; 86140

== ENCOUNTER → 2020-11-29 08:45 | Outpatient (CLI) | payer MEDICARE, SELFPAY ==
[2020-03-13 08:06] VITALS: BMI 46.3
--- NOTE | 2020-11-29 09:05 | RAD_ITS ---
STUDY: X-RAY - ABDOMEN/PELVIS REASON FOR EXAM: Male, 65 years old. Abdominal pain and bloating. Patient describes a hernia. TECHNIQUE: AP supine and upright views of the abdomen and pelvis. COMPARISON: CT of the abdomen, 05/11/2012. FINDINGS: Normal visualized lung bases. There is an unremarkable bowel gas pattern. There is no demonstrated free abdominal air. There is a vague calcification right upper quadrant. Question gallstone. Normal appearing liver spleen and kidneys. Normal soft tissue structures. There are diffuse degenerative changes of the visualized lumbar spine. RAD/Abd Inc Decub and/or Erect IMPRESSION: 1. Question gallstone. 2. No evidence of acute intra-abdominal or pelvic process. 3. Degenerative changes lumbar spine Electronically Signed: Hugo Pitt DO at 17:31 EST Tel [phone], Service support ,
[2020-11-29 10:38] LABS: Erythrocyte Sedimentation Rate 8 mm/hr (0-20)
[2020-11-29 10:40] LABS: Hematocrit 40.6 % (40-54); Hemoglobin 13.6 g/dL (13.0-16.5); Mean Corp Hgb Conc 33.5 g/dL (32-36); Mean Corpuscular Hgb 32.5 pg (27.0-32.0); Mean Corpuscular Volume 97.1 fL (80-94); Mean Platelet Vol. 10.1 fl (6.2-12.0); Platelet Count 235 K/mm3 (150-450); RBC Distribution Width CV 12.5 % (11.6-14.6); RBC Distribution Width SD 44.5 fl (35.1-43.9); Red Blood Count 4.18 M/mm3 (4.6-6.2); White Blood Count 6.7 K/mm3 (4.4-11.0)
[2020-11-29 10:57] LABS: BUN 18 mg/dL (7-18); Creatinine, Serum 0.83 mg/dL (0.70-1.30); Glucose 171 mg/dL (74-106)
[2020-11-29 10:58] LABS: ALB/GLOB Ratio 0.9 RATIO (0.9-2.4); AST(SGOT) 10 U/L (15-37); Alanine Aminotransfer ALT/SGPT 31 U/L (16-61); Albumin, Serum 3.4 g/dL (3.2-5.0); Alkaline Phosphatase 62 U/L (45-117); Anion Gap 1 (5-15); BUN/Creat Ratio 21.8 RATIO (10-20); Calcium,Total 8.5 mg/dL (8.5-10.1); Chloride 107 mmol/L (98-107); Cholesterol 133 mg/dL (200); EST Glomerular Filtration Rate 99 mL/min (>60); Est Glom Filt Rate - Afr Amer 119 mL/min (>60); Globulin 3.6 g/dL (2.2-4.2); High Density Lipoprotein 29 mg/dL; Potassium 3.9 mmol/L (3.5-5.1); Sodium Level 139 mmol/L (136-145); Thyroid Stim Hormone (TSH) 2.32 uIU/mL (0.358-3.74); Triglycerides 248 mg/dL; Very Low Density Lipoprotein 50 mg/dL (5-40)
== END ==
PROVIDERS: PCP Family Medicine; Referring Provider Family Medicine; Visit Provider Family Medicine
DX: R14.0 Abdominal distension (gaseous) (principal); E11.9 Type 2 diabetes mellitus without complications
CPT/HCPCS: 36415; 74019; 80053; 80061; 84403; 84443; 85027; 85652

== ENCOUNTER 2021-01-29 07:34 | Outpatient (RCR) | payer MEDICARE, SELFPAY ==
[2020-03-13 08:06] VITALS: BMI 46.3
[2021-01-29] MEDS: COVID-19 VACC, MRNA(PFIZER)/PF 30 MCG/0.3 ML SYRINGE IM (08:06)
[2021-02-19] MEDS: COVID-19 VACC, MRNA(PFIZER)/PF 30 MCG/0.3 ML SYRINGE IM (07:54)
== END 2021-04-30 23:59 ==
LOC: IMMUN 07:34
PROVIDERS: PCP Family Medicine; Referring Provider Family Medicine; Visit Provider Family Medicine
DX: Z23 Encounter for immunization (principal)
CPT/HCPCS: 0001A; 0002A; 91300

== ENCOUNTER → 2021-02-21 08:55 | Outpatient (CLI) | payer MEDICARE, SELFPAY ==
[2020-03-13 08:06] VITALS: BMI 46.3
--- NOTE | 2021-02-21 08:59 | RAD_ITS ---
STUDY: X-RAY CHEST REASON FOR EXAM: Male, 65 years old. COUGH TECHNIQUE: PA and lateral views of the chest. COMPARISON: Comparison is made with prior study dated 03/08/2019. FINDINGS: The lungs are clear and expanded. There is no demonstrated pleural abnormality. Normal size heart. Normal mediastinum and mars. Normal visualized pulmonary arteries. There is atherosclerotic calcification of the aortic arch with tortuosity. There are diffuse degenerative changes of the visualized thoracic spine. Normal visualized ribs, clavicles, and shoulders. There is no demonstrated abnormality of the visualized soft tissue structures of the upper abdomen. RAD/Chest PA and Lateral IMPRESSION: No acute abnormality is seen. Electronically Signed: Bi Leslie MD at 10:14 EDT , Service support ,
== END ==
PROVIDERS: PCP Family Medicine; Referring Provider Family Medicine; Visit Provider Family Medicine
DX: R05 Cough (principal)
CPT/HCPCS: 71046

== ENCOUNTER → 2021-03-06 08:20 | Outpatient (CLI) | payer MEDICARE, SELFPAY ==
[2020-03-13 08:06] VITALS: BMI 46.3
--- NOTE | 2021-03-06 08:24 | RAD_ITS ---
STUDY: X-RAY - ESOPHAGUS (BARIUM SWALLOW) WITH FLUOROSCOPY REASON FOR EXAM: Male, 65 years old. GERD TECHNIQUE: 20 view(s) of the esophagus were obtained following swallowing of barium. FLUOROSCOPY TIME (if supplied): (36 seconds) minutes/seconds COMPARISON: None. FINDINGS: There is no demonstrated esophageal foreign body. There is no demonstrated stricture or mucosal abnormality. Normal gastroesophageal junction, without a demonstrated hiatal hernia. The patient ingested a 12 mm tablet of barium without any difficulty. Normal visualized aortic arch and descending thoracic aorta. Normal visualized pulmonary parenchyma. There are diffuse degenerative changes of the visualized thoracic spine. RAD/Esophagus Dual Contrast IMPRESSION: Normal plain film x-ray examination (barium swallow) of the esophagus. Electronically Signed: Bi Leslie MD at 9:41 EDT , Service support ,
== END ==
PROVIDERS: PCP Family Medicine; Referring Provider Family Medicine; Visit Provider Family Medicine
DX: K21.9 Gastro-esophageal reflux disease without esophagitis (principal)
CPT/HCPCS: 74221

== ENCOUNTER → 2021-03-26 08:19 | Outpatient (CLI) | payer MEDICARE, SELFPAY ==
[2020-03-13 08:06] VITALS: BMI 46.3
--- NOTE | 2021-03-28 09:27 | PFTCOMP ---
INTRODUCTION: The patient is a 65-year-old male that presents for pulmonary function studies secondary to a diagnosis of shortness of breath. Respiratory therapy reports good patient effort. Bronchodilators were used during testing. INTERPRETATION: Forced expiration spirometry demonstrates no evidence of a large airways obstructive ventilatory defect. There was no significant response to aerosolized bronchodilators. Spirograms are of good quality and plateau normally. Body plethysmography was performed and reveals lung volumes to be within normal limits. Diffusing capacity by single breath CO is also within normal limits. IMPRESSION: Grossly normal pulmonary function studies.
== END ==
PROVIDERS: PCP Family Medicine; Referring Provider Family Medicine; Visit Provider Family Medicine
DX: R06.02 Shortness of breath (principal)
CPT/HCPCS: 94060; 94726; 94729

== ENCOUNTER → 2021-04-04 12:52 | Outpatient (CLI) | payer MEDICARE, SELFPAY ==
[2020-03-13 08:06] VITALS: BMI 46.3
[2021-04-04 13:17] LABS: Absolute Lymphocyte Count 2.93 X10^3/uL (0.83-4.51); Absolute Neutrophil Count 4.5 X10^3/uL (2.0-7.7); Basophil# 0.02 X10^3/uL; Basophil% 0.2 % (0-1); Eosinophil# 0.05 X10^3/uL; Eosinophils% 0.6 % (0-5); Hematocrit 44.2 % (40-54); Hemoglobin 14.7 g/dL (13.0-16.5); Lymphocyte # 2.93 X10^3/ul (0.83-4.51); Lymphocyte % 35.8 % (19-41); Mean Corp Hgb Conc 33.3 g/dL (32-36); Mean Corpuscular Hgb 32.7 pg (27.0-32.0); Mean Corpuscular Volume 98.4 fL (80-94); Mean Platelet Vol. 9.6 fl (6.2-12.0); Monocyte# 0.68 X10^3/uL; Monocyte% 8.3 % (0-10); NRBC Flagged by Analyzer 0 % (0-5); Neutrophil # 4.48 X10^3/uL (2.7-7.7); Neutrophil % 54.9 % (47-70); Platelet Count 259 K/mm3 (150-450); RBC Distribution Width CV 12.3 % (11.6-14.6); RBC Distribution Width SD 44.4 fl (35.1-43.9); Red Blood Count 4.49 M/mm3 (4.6-6.2); White Blood Count 8.2 K/mm3 (4.4-11.0)
[2021-04-04 13:52] LABS: Anion Gap 3 (5-15); BUN 22 mg/dL (7-18); BUN/Creat Ratio 21.8 RATIO (10-20); Calcium,Total 9.2 mg/dL (8.5-10.1); Chloride 105 mmol/L (98-107); Creatinine, Serum 1.01 mg/dL (0.70-1.30); EST Glomerular Filtration Rate 78 mL/min (>60); Est Glom Filt Rate - Afr Amer 95 mL/min (>60); Glucose 195 mg/dL (74-106); Potassium 4.1 mmol/L (3.5-5.1); Sodium Level 137 mmol/L (136-145)
[2021-04-04 14:38] LABS: BNP,B-Type NATRIURETIC PEPTIDE 2.7 pg/mL (0-100)
== END ==
PROVIDERS: PCP Family Medicine; Referring Provider Internal Medicine Cardiovascular Disease; Visit Provider Internal Medicine Cardiovascular Disease
DX: R06.02 Shortness of breath (principal); I35.0 Nonrheumatic aortic (valve) stenosis
CPT/HCPCS: 36415; 80048; 83880; 85025

== ENCOUNTER → 2021-04-09 08:53 | Outpatient (CLI) | payer MEDICARE, SELFPAY ==
[2020-03-13 08:06] VITALS: BMI 46.3
--- NOTE | 2021-04-09 09:13 | RAD_ITS ---
STUDY: X-RAY - LEFT HAND, ATTENTION thumb REASON FOR EXAM: Male, 65 years old. PAIN TECHNIQUE: 3 view(s) of the finger were obtained. COMPARISON: None. FINDINGS: Normal metacarpal head. Normal metacarpophalangeal joint. Normal proximal phalanx. Normal distal phalanx. Normal interphalangeal joint. Accessory ossicle or old fracture fragment adjacent to the IP joint. No radiopaque foreign body. RAD/Finger(s) Min 2 Views IMPRESSION: No fracture or radiopaque foreign body. Electronically Signed: Deuce Torres MD ([place]) at 15:21 EDT , Service support ,
[2021-04-13 20:07] LABS: Alternaria alternata <0.10 kU/L (Class 0); Beef <0.10 kU/L (Class 0); Bermuda Grass <0.10 kU/L (Class 0); Bluegrass, Kentucky <0.10 kU/L (Class 0); Cat Hair/Dander, Standard <0.10 kU/L (Class 0); Corn <0.10 kU/L (Class 0); D farinae Mite <0.10 kU/L (Class 0); D pteronyssinus <0.10 kU/L (Class 0); Dog Epithelia <0.10 kU/L (Class 0); Egg, Whole <0.10 kU/L (Class 0); Elm, American White <0.10 kU/L (Class 0); Milk (Cow) <0.10 kU/L (Class 0); Mouse Urine <0.10 kU/L (Class 0); Oak, White <0.10 kU/L (Class 0); Peanut <0.10 kU/L (Class 0); Plantain, English <0.10 kU/L (Class 0); Pork <0.10 kU/L (Class 0); Ragweed, Short/Common <0.10 kU/L (Class 0); Soybean <0.10 kU/L (Class 0); Wheat <0.10 kU/L (Class 0)
[2021-04-14 08:40] LABS: Chocolate <0.10 kU/L (Class 0)
== END ==
PROVIDERS: PCP Family Medicine; Referring Provider Family Medicine; Visit Provider Family Medicine
DX: S69.92XS Unspecified injury of left wrist, hand and finger(s), sequela (principal); J45.20 Mild intermittent asthma, uncomplicated
CPT/HCPCS: 36415; 73140; 86003; 86005

== ENCOUNTER → 2021-06-17 09:08 | Outpatient (CLI) | payer MEDICARE, SELFPAY ==
[2020-03-13 08:06] VITALS: BMI 46.3
[2021-06-17 10:39] LABS: Absolute Lymphocyte Count 3.05 X10^3/uL (0.83-4.51); Basophil# 0.03 X10^3/uL; Basophil% 0.3 % (0-1); Eosinophils% 1.1 % (0-5); Hematocrit 43.1 % (40-54); Hemoglobin 14.8 g/dL (13.0-16.5); Lymphocyte # 3.05 X10^3/ul (0.83-4.51); Lymphocyte % 33.9 % (19-41); Mean Corp Hgb Conc 34.3 g/dL (32-36); Mean Corpuscular Hgb 32.6 pg (27.0-32.0); Mean Corpuscular Volume 94.9 fL (80-94); Mean Platelet Vol. 9.7 fl (6.2-12.0); Monocyte# 0.79 X10^3/uL; Monocyte% 8.8 % (0-10); NRBC Flagged by Analyzer 0 % (0-5); Neutrophil # 5.01 X10^3/uL (2.7-7.7); Neutrophil % 55.6 % (47-70); Platelet Count 256 K/mm3 (150-450); RBC Distribution Width CV 12.5 % (11.6-14.6); RBC Distribution Width SD 43.3 fl (35.1-43.9); Red Blood Count 4.54 M/mm3 (4.6-6.2)
[2021-06-17 11:16] LABS: BNP,B-Type NATRIURETIC PEPTIDE 7.9 pg/mL (0-100)
[2021-06-17 11:18] LABS: ALB/GLOB Ratio 0.9 RATIO (0.9-2.4); AST(SGOT) 18 U/L (15-37); Alanine Aminotransfer ALT/SGPT 40 U/L (16-61); Albumin, Serum 3.7 g/dL (3.2-5.0); Alkaline Phosphatase 59 U/L (45-117); Anion Gap 7 (5-15); BUN 12 mg/dL (7-18); BUN/Creat Ratio 15.5 RATIO (10-20); Calcium,Total 8.8 mg/dL (8.5-10.1); Chloride 102 mmol/L (98-107); Creatinine, Serum 0.77 mg/dL (0.70-1.30); EST Glomerular Filtration Rate 106 mL/min (>60); Est Glom Filt Rate - Afr Amer 129 mL/min (>60); Globulin 3.9 g/dL (2.2-4.2); Glucose 179 mg/dL (74-106); Potassium 4.1 mmol/L (3.5-5.1); Protein, Total 7.6 g/dL (6.4-8.2); Sodium Level 135 mmol/L (136-145); Thyroid Stim Hormone (TSH) 2.02 uIU/mL (0.358-3.74)
== END ==
PROVIDERS: PCP Family Medicine; Visit Provider Family Medicine
DX: R06.02 Shortness of breath (principal); R49.9 Unspecified voice and resonance disorder
CPT/HCPCS: 36415; 80053; 83880; 84443; 85025

== ENCOUNTER → 2021-10-21 18:20 | Outpatient (CLI) | payer MEDICARE, SELFPAY | PROVIDERS: PCP Family Medicine; Referring Provider Family Medicine; Visit Provider Family Medicine | DX: U07.1 COVID-19 (principal) | CPT/HCPCS: 87635; U0005; U0003 ==

== ENCOUNTER 2021-10-23 11:24 | Outpatient (CLI) | payer MEDICARE, SELFPAY ==
[2021-10-23 11:42] VITALS: BP 129/74; PULSE 96; RESP 18; TEMP 37; O2SAT 96; BMI 45.6
[2021-10-23] MEDS: 0.9% Saline Lock 10 ML Syringe IV (11:44)
[2021-10-23 12:53] VITALS: BP 127/82; PULSE 87; RESP 18; TEMP 36.7; O2SAT 98
[2021-10-23 13:43] VITALS: BP 127/73; PULSE 87; RESP 16; TEMP 37.2; O2SAT 97
== END 2021-10-23 13:55 | disposition home or self-care (01) ==
LOC: MS3OUT 11:24 → MS3 11:25
PROVIDERS: PCP Family Medicine; Referring Provider Nurse Practitioner Adult Health; Visit Provider Nurse Practitioner Adult Health
DX: Z23 Encounter for immunization (principal); U07.1 COVID-19
CPT/HCPCS: J7050; M0245; Q0245; A4216

== ENCOUNTER 2022-03-10 08:51 | Outpatient (CLI) | payer MEDICARE, SELFPAY ==
[2022-03-10 12:33] LABS: Vitamin B12 492 pg/mL (211-911)
[2022-03-10 13:20] LABS: ALB/GLOB Ratio 0.9 RATIO (0.9-2.4); AST(SGOT) 14 U/L (15-37); Alanine Aminotransfer ALT/SGPT 31 U/L (16-61); Albumin, Serum 3.6 g/dL (3.2-5.0); Alkaline Phosphatase 58 U/L (45-117); Anion Gap 8 (5-15); BUN 20 mg/dL (7-18); BUN/Creat Ratio 21.7 RATIO (10-20); Calcium,Total 9.3 mg/dL (8.5-10.1); Chloride 103 mmol/L (98-107); Cholesterol 123 mg/dL (200); Creatinine, Serum 0.92 mg/dL (0.70-1.30); EST Glomerular Filtration Rate 87 mL/min (>60); Est Glom Filt Rate - Afr Amer 105 mL/min (>60); Globulin 3.9 g/dL (2.2-4.2); Glucose 163 mg/dL (74-106); High Density Lipoprotein 32 mg/dL; Potassium 4.5 mmol/L (3.5-5.1); Protein, Total 7.5 g/dL (6.4-8.2); Sodium Level 136 mmol/L (136-145); Thyroid Stim Hormone (TSH) 1.24 uIU/mL (0.358-3.74); Triglycerides 268 mg/dL; Very Low Density Lipoprotein 54 mg/dL (5-40)
== END 2022-03-10 23:59 | disposition home or self-care (01) ==
LOC: MFPLAB 08:51
PROVIDERS: PCP Family Medicine; Visit Provider Family Medicine
DX: E11.40 Type 2 diabetes mellitus with diabetic neuropathy, unspecified (principal)
CPT/HCPCS: 36415; 80053; 80061; 82607; 84443

== ENCOUNTER → 2024-01-05 | Outpatient (CLI) | payer MEDICARE, SELFPAY ==
--- OUTSIDE RECORDS SUMMARY | 2024-01-05 07:32 | XMS RPT_ITS | CCD ---
Author Name Unknown Address [facility] [address] [place] [address] Organization [facility] Care Team Providers Care House Detective Name Role Phone TREASURE Reddy, Adilene Capellan Unavailable Unavailabl e JOLLY, GUILLERMO S Unavailable Unavailable LARRY HUBBARD Unavailable Unavailable JOLLY, GUILLERMO S Unavailable Unavailable LARRY HUBBARD Unavailable Unavailable Allergies Allergy Classification Reported Allergen(s) Allergy Type Date of Onset Reaction(s) Facility (1 source) codeine drug allergy 02-09-2012 [facility] Work Phone: Medications Completed/Discontinued Medications Medication Drug Class(es) Dates Sig (Normalized) Sig (Original) aspirin 325 mg oral tablet (4 sources) Nonsteroidal Anti-inflammatory Drug Start: 02-09-2012 End: 07-11-2013 take 1 tablet by mouth once daily ASPIRIN 325 MG TABS One tablet by mouth daily ASPIRIN [id number] Enrique Sherman Problems Active Problems Problem Classification Problem Date Documented Date Episodic/Chronic Aortic; peripheral; and visceral artery aneurysms (1 source) Thoracic aortic ectasia; Translations: [Thoracic aortic ectasia] Onset: 01-14-2017 01-14-2017 Chronic Coronary atherosclerosis and other heart disease (4 sources) Atherosclerotic heart disease of [place] coronary artery without angina pectoris; Translations: [Coronary arteriosclerosis] Onset: 02-09-2012 Resolved: 08-21-2016 08-21-2016 Chronic Disorders of lipid metabolism (1 source) Hyperlipidemia; Translations: [Hyperlipidemia, unspecified] Onset: 02-09-2012 02-09-2012 Chronic Essential hypertension (1 source) Hypertensive disorder; Translations: [Essential (primary) hypertension] Onset: 02-09-2012 02-09-2012 Chronic Heart valve disorders (2 sources) Nonrheumatic mitral (valve) prolapse; Translations: [Mitral valve prolapse] Onset: 02-09-2012 08-21-2016 Chronic Other nutritional; endocrine; and metabolic disorders (2 sources) Body mass index (BMI) 45.0-49.9, adult; Translations: [Morbid obesity] Onset: 02-06-2015 02-06-2015 Chronic Unclassified (1 source) Sleep apnea; Translations: [Sleep apnea, unspecified] Onset: 02-09-2012 02-09-2012 Chronic Unclassified (1 source) Displaced fracture of distal phalanx of unspecified finger; Translations: [Displaced fracture of distal phalanx of unspecified finger] Onset: 08-16-2012 08-16-2012 Past or Other Problems Problem Classification Problem Date Documented Date Episodic/Chronic Anal and rectal conditions (1 source) Anorectal abscess; Translations: [Anorectal abscess] Onset: 07-11-2013 07-14-2013 Episodic Fluid and electrolyte disorders (1 source) Hypokalemia; Translations: [Hypokalemia] Onset: 02-09-2012 02-09-2012 Episodic Other acquired deformities (1 source) Mallet finger; Translations: [Mallet finger of unspecified finger(s)] 08-17-2012 Episodic Other aftercare (2 sources) Other electrical hardware engineer (current) drug therapy; Translations: [Other intermediate (current) drug therapy] Onset: 02-09-2012 11-11-2016 Episodic Other circulatory disease (2 sources) Carotid bruit; Translations: [Abnormal result of cardiovascular function study, unspecified] Onset: 02-09-2012 02-09-2012 Episodic Other connective tissue disease (2 sources) Diastasis recti; Translations: [Prepatellar bursitis] 02-03-2014 Episodic Other lower respiratory disease (1 source) Dyspnea; Translations: [Shortness of breath] Onset: 02-09-2012 02-09-2012 Episodic Other non-traumatic joint disorders (2 sources) Pain in unspecified shoulder; Translations: [Knee pain] Onset: 08-16-2012 08-16-2012 Episodic Skin and subcutaneous tissue infections (1 source) Cyst - pilonidal; Translations: [Pilonidal cyst without abscess] 02-03-2014 Episodic Unclassified (3 sources) Family history of stroke; Translations: [Family history of ischemic heart disease and other diseases of the circulatory system] 02-06-2015 Episodic Results Test Name Value Interpretation Reference Range Facil ity Vital Signs Date Time Vital Sign Value Performing Clinician Rebecca del toro 01-15-2017 10:40-0500 BMI (Body Mass Index) 44.17 kg/m2 [facility] Work Phone: 01-15-2017 10:40-0500 BP Diastolic 64 mm[Hg] [facility] Work Phone: 01-15-2017 10:40-0500 BP Systolic 100 mm[Hg] [facility] Work Phone: 01-15-2017 10:40-0500 BSA (Body Surface Area) 2.21 m2 [facility] Work Phone: 01-15-2017 10:40-0500 Pulse (Heart Rate) 72 /min [facility] Work Phone: 01-15-2017 10:40-0500 Respiratory Rate 20 /min [facility] Work Phone: 01-15-2017 10:40-0500 Weight 118.57 kg [facility] Work Phone: 02-16-2014 09:13-0400 Body Temperature 98.4 [degF] [facility] Work Phone: 02-02-2014 14:27-0400 Height 163.83 cm [facility] Work Phone: Encounters Encounter Date Encounter Type Care Provider Facility Start: 04-15-2018 Ambulatory GUILLERMO AZEVEDO Facility: B Start: 04-07-2018 End: 04-08-2018 Ambulatory GUILLERMO AZEVEDO Facility:[facility] Procedures Date Procedure Procedure Detail Performing Clinician Start: 01-15-2017 End: 01-15-2017 Follow Up Appt 6 months Timi Rajput Start: 01-15-2017 End: 01-15-2017 MMM Guillermo Azevedo MD Start: 02-06-2015 End: 02-07-2015 Documentation of current medications Guillermo Azevedo MD Start: 02-06-2015 End: 02-06-2015 Follow Up Appt 6 months Timi Rajput Start: 02-06-2015 End: 02-06-2015 MMM Guillermo Azevedo MD Start: 02-06-2014 Incision of anal abscess Camila Hernandez Work Phone: Start: 02-10-2012 End: 02-10-2012 eRx Transmitted during this visit (Medicare only) Guillermo Azevedo MD Plan of Treatment Date Care Activity Detail Author Start: 07-14-2017 End: 07-14-2017 Appointment Appointment [facility] Work Phone: Start: 01-15-2017 End: 01-15-2017 *Hepatic Function Panel *Hepatic Function Panel [facility] [employer] [facility] Work Phone: Start: 01-15-2017 End: 01-15-2017 Follow Up Appt 6 months Follow Up Appt 6 months [facility] Work Phone: Start: 01-15-2017 End: 01-15-2017 Lipid panel [AGGREGATE] *Lipid Profile CC PCP [facility] Work Phone: Start: 01-15-2017 End: 01-15-2017 MMM MMM [facility] Work Phone: Start: 02-06-2015 End: 02-06-2015 Follow Up Appt 6 months Follow Up Appt 6 months [facility] Work Phone: Start: 02-06-2015 End: 02-06-2015 MMM MMM [facility] Work Phone: Start: 02-10-2012 End: 02-10-2012 BNP *Brain Natriuretic Peptide BNP [facility] Work Phone: Start: 02-10-2012 End: 02-10-2012 Follow Up Appt 1 year Follow Up Appt 1 year [facility] Work Phone: Start: 02-10-2012 End: 02-10-2012 Thyroid stimulating hormone (TSH) *TSH [facility] Work Phone: Payers Date Payer Category Payer Medicare [id number] Summary Purpose Family History No Family History Records Found Advance Directives No Advanced Directives Records Found Additional Source Comments (unrecognized sect ion and content) No Status Records Found INFORMATION SOURCE (unrecogn ized section and content) FOR RECORDS PERTAINING TO PATIENTS WHO ARE OR HAVE BEEN ENROLLED IN A CHEMICAL DEPENDENCY/SUBSTANCEABUSE PROGRAM, SOME INFORMATION MAY BE OMITTED. This clinical summary was aggregated from multiple sources. Caution should be exercised in using it in the provision of clinical care. This summary normalizes information from multiple sources, and as a consequence, information in this document may materially change the coding, format and clinical context of patient data. In addition, data may be omitted in some cases. CLINICAL DECISIONS SHOULD BE BASED ON THE PRIMARY CLINICAL RECORDS. [facility]. provides no warranty or guarantee of the accuracy or completeness of information in this document.
--- NOTE | 2024-01-05 09:20 | RAD_ITS ---
EXAM: XR CERVICAL SPINE, 6 OR MORE VIEWS CLINICAL INDICATION: DDD TECHNIQUE: Frontal, lateral, oblique and flexion/extension views of the cervical spine. COMPARISON: No relevant prior studies available. FINDINGS: VERTEBRAE: There is mild reversal the normal cervical lordosis. There is no change in alignment with flexion or extension views. Oblique views show severe bilateral bony neural foraminal narrowing at C5-6. Preserved vertebral body height. No acute fracture. No spondylolisthesis. No significant facet arthropathy. DISC SPACES: There is disc space narrowing at C5-C6 with small anterior osteophyte. SOFT TISSUES: Unremarkable. No prevertebral soft tissue widening. LUNG APICES: Clear. RAD/Cerv Spine Obl/Flex/Ext Comp IMPRESSION: 1. No acute osseous abnormalities cervical spine. 2. Severe bony neural foraminal narrowing at C5-6. There is mild straightening of the normal cervical lordosis which may be due to a muscular strain. Electronically Signed: Pablo Anders MD at 18:35 EST ,
--- NOTE | 2024-01-05 09:25 | RAD_ITS ---
EXAM: XR LUMBOSACRAL SPINE, 4 OR 5 VIEWS CLINICAL INDICATION: lumbago TECHNIQUE: Frontal, lateral and bilateral oblique views of the lumbar spine. COMPARISON: No relevant prior studies available. FINDINGS: VERTEBRAE: There are osteophytes at multiple levels. Preserved vertebral body height. No fracture. No spondylolisthesis. Preservation of the normal lumbar lordosis. No significant facet arthropathy. DISC SPACES: No acute findings. Disc spaces are maintained. GASTROINTESTINAL TRACT: Unremarkable as visualized. Included bowel gas pattern is non-obstructive. RAD/L/S Spine Min 4 Views IMPRESSION: Mild degenerative changes with osteophyte formation. There is no acute osseous abnormality. Electronically Signed: Pablo Anders MD at 18:39 EST ,
[2024-01-05 10:16] LABS: Absolute Neutrophil Count 5.3 X10^3/uL (2.0-7.7); Basophil# 0.02 X10^3/uL; Basophil% 0.2 % (0-1); Eosinophil# 0.09 X10^3/uL; Eosinophils% 1.1 % (0-5); Hematocrit 42.6 % (40-54); Lymphocyte % 27.6 % (19-41); Mean Corp Hgb Conc 32.9 g/dL (32-36); Mean Corpuscular Hgb 32.4 pg (27.0-32.0); Mean Corpuscular Volume 98.6 fL (80-94); Mean Platelet Vol. 10.1 fl (6.2-12.0); Monocyte# 0.62 X10^3/uL; Monocyte% 7.4 % (0-10); NRBC Flagged by Analyzer 0 % (0-5); Neutrophil # 5.28 X10^3/uL (2.7-7.7); Neutrophil % 63.5 % (47-70); Platelet Count 237 K/mm3 (150-450); RBC Distribution Width CV 12.9 % (11.6-14.6); RBC Distribution Width SD 46.5 fl (35.1-43.9); Red Blood Count 4.32 M/mm3 (4.6-6.2); White Blood Count 8.3 K/mm3 (4.4-11.0)
[2024-01-05 10:31] LABS: Vitamin B12 481 pg/mL (211-911); Vitamin D,25 Hydroxy 35.1 ng/mL
[2024-01-05 10:59] LABS: ALB/GLOB Ratio 0.8 RATIO (0.9-2.4); AST(SGOT) 20 U/L (15-37); Alanine Aminotransfer ALT/SGPT 30 U/L (16-61); Albumin, Serum 3.2 g/dL (3.2-5.0); Alkaline Phosphatase 66 U/L (45-117); Anion Gap 7 (5-15); BUN 15 mg/dL (7-18); BUN/Creat Ratio 17.7 RATIO (10-20); Calcium,Total 8.7 mg/dL (8.5-10.1); Chloride 106 mmol/L (98-107); Cholesterol 147 mg/dL (200); Creatinine, Serum 0.85 mg/dL (0.70-1.30); EST Glomerular Filtration Rate 95 mL/min (>60); Est Glom Filt Rate - Afr Amer 115 mL/min (>60); Glucose 244 mg/dL (74-106); High Density Lipoprotein 32 mg/dL; Potassium 3.9 mmol/L (3.5-5.1); Protein, Total 7.2 g/dL (6.4-8.2); Sodium Level 138 mmol/L (136-145); Thyroid Stim Hormone (TSH) 1.56 uIU/mL (0.358-3.74); Triglycerides 259 mg/dL; Uric Acid 5.3 mg/dL (3.5-7.2); Very Low Density Lipoprotein 52 mg/dL (5-40)
== END | disposition home or self-care (01) ==
PROVIDERS: PCP Family Medicine; Referring Provider Family Medicine; Visit Provider Family Medicine
DX: M54.50 Low back pain, unspecified (principal); E11.40 Type 2 diabetes mellitus with diabetic neuropathy, unspecified; M50.90 Cervical disc disorder, unspecified, unspecified cervical region; E55.9 Vitamin D deficiency, unspecified; M10.9 Gout, unspecified; E53.8 Deficiency of other specified B group vitamins
CPT/HCPCS: 36415; 72052; 72110; 80053; 80061; 82306; 82607; 84403; 84443; 84550; 85025

== ENCOUNTER → 2024-09-27 | Outpatient (CLI) | payer MEDICARE, SELFPAY | END | disposition home or self-care (01) | LOC: SL 09:31 | PROVIDERS: PCP Family Medicine; Visit Provider Nurse Practitioner Acute Care | DX: G47.33 Obstructive sleep apnea (adult) (pediatric) (principal) ==

== ENCOUNTER 2025-02-20 08:59 | Outpatient (CLI) | payer MEDICARE, SELFPAY ==
[2025-02-20 10:37] LABS: Hematocrit 39.7 % (40-54); Hemoglobin 13.6 g/dL (13.0-16.5); Mean Corp Hgb Conc 34.3 g/dL (32-36); Mean Corpuscular Hgb 32.5 pg (27.0-32.0); Mean Corpuscular Volume 94.7 fL (80-94); Mean Platelet Vol. 9.5 fl (6.2-12.0); Platelet Count 265 K/mm3 (150-450); RBC Distribution Width CV 13.5 % (11.6-14.6); RBC Distribution Width SD 47.4 fl (35.1-43.9); Red Blood Count 4.19 M/mm3 (4.6-6.2); White Blood Count 8.6 K/mm3 (4.4-11.0)
[2025-02-20 11:14] LABS: ALB/GLOB Ratio 1.3 RATIO (0.9-2.4); AST(SGOT) 16 U/L (<=37); Alanine Aminotransfer ALT/SGPT 15 U/L (<=46); Albumin, Serum 4.1 g/dL (3.4-4.8); Alkaline Phosphatase 61 U/L (40-129); Anion Gap 11 (5-15); BUN 11 mg/dL (4-19); BUN/Creat Ratio 15.5 RATIO (10-20); Calcium,Total 9.5 mg/dL (7.6-11.0); Chloride 101 mmol/L (98-108); Creatinine, Serum 0.74 mg/dL (0.70-1.20); EST Glomerular Filtration Rate 97 (>60); Globulin 3.1 g/dL (2.2-4.2); Glucose 159 mg/dL (70-99); PSA,Total - Annual Screen 0.18 ng/mL (0.02-4.00); Potassium 4.3 mmol/L (3.3-5.1); Protein, Total 7.1 g/dL (5.9-8.4); Sodium Level 136 mmol/L (133-145); Total Bilirubin 0.19 mg/dL (0.00-1.30); Vitamin B12 708 pg/mL (180-914); Vitamin D,25 Hydroxy 26.9 ng/mL (30-100)
[2025-03-01 11:08] LABS: Testosterone, % Free 3.64 % (1.50-4.20); Testosterone, Free 7.53 ng/dL (5.00-21.00); Testosterone, Total 207 ng/dL (264-916)
== END 2025-02-20 23:59 | disposition home or self-care (01) ==
LOC: MTLAB 09:00
PROVIDERS: PCP Family Medicine; Referring Provider Family Medicine; Visit Provider Family Medicine
DX: R53.83 Other fatigue (principal); N40.0 Benign prostatic hyperplasia without lower urinary tract symptoms; E55.9 Vitamin D deficiency, unspecified; Z12.5 Encounter for screening for malignant neoplasm of prostate
CPT/HCPCS: 36415; 80053; 82306; 82607; 84153; 84402; 84403; 84443; 85027; G0103

== ENCOUNTER → 2025-03-08 | Outpatient (CLI) | payer MEDICARE, SELFPAY ==
[2025-03-08 12:56] LABS: Absolute Lymphocyte Count 2.64 X10^3/uL (0.83-4.51); Absolute Neutrophil Count 2.8 X10^3/uL (2.0-7.7); Basophil# 0.02 X10^3/uL; Basophil% 0.3 % (0-1); Eosinophils% 1.6 % (0-5); Hematocrit 38.1 % (40-54); Hemoglobin 13.1 g/dL (13.0-16.5); Lymphocyte # 2.64 X10^3/ul (0.83-4.51); Lymphocyte % 43.1 % (19-41); Mean Corp Hgb Conc 34.4 g/dL (32-36); Mean Corpuscular Hgb 32.3 pg (27.0-32.0); Mean Corpuscular Volume 93.8 fL (80-94); Mean Platelet Vol. 9.8 fl (6.2-12.0); Monocyte# 0.57 X10^3/uL; Monocyte% 9.3 % (0-10); NRBC Flagged by Analyzer 0 % (0-5); Neutrophil # 2.78 X10^3/uL (2.7-7.7); Neutrophil % 45.5 % (47-70); Platelet Count 254 K/mm3 (150-450); RBC Distribution Width CV 13.2 % (11.6-14.6); RBC Distribution Width SD 45.8 fl (35.1-43.9); Red Blood Count 4.06 M/mm3 (4.6-6.2); White Blood Count 6.1 K/mm3 (4.4-11.0)
[2025-03-08 13:08] LABS: Amylase 68 U/L (28-100); Lipase 39 U/L (13-75)
[2025-03-08 13:11] LABS: ALB/GLOB Ratio 1.2 RATIO (0.9-2.4); AST(SGOT) 25 U/L (<=37); Alanine Aminotransfer ALT/SGPT 20 U/L (<=46); Albumin, Serum 3.9 g/dL (3.4-4.8); Alkaline Phosphatase 54 U/L (40-129); Anion Gap 10 (5-15); BUN 8 mg/dL (4-19); Calcium,Total 9.2 mg/dL (7.6-11.0); Carbon Dioxide 24.1 mmol/L (21.0-32.0); Chloride 104 mmol/L (98-108); Creatinine, Serum 0.75 mg/dL (0.70-1.20); EST Glomerular Filtration Rate 97 (>60); Globulin 3.2 g/dL (2.2-4.2); Glucose 113 mg/dL (70-99); Potassium 4.2 mmol/L (3.3-5.1); Protein, Total 7.1 g/dL (5.9-8.4); Sodium Level 138 mmol/L (133-145); Total Bilirubin 0.22 mg/dL (0.00-1.30)
== END | disposition home or self-care (01) ==
PROVIDERS: PCP Family Medicine
DX: A08.11 Acute gastroenteropathy due to Norwalk agent (principal)
CPT/HCPCS: 36415; 80053; 82150; 83690; 85025

== ENCOUNTER → 2025-03-27 | Outpatient (CLI) | payer MEDICARE, SELFPAY | END | disposition home or self-care (01) | LOC: PSN 09:15 | PROVIDERS: PCP Family Medicine; Referring Provider Nurse Practitioner Family; Visit Provider Nurse Practitioner Family | DX: R05.9 Cough, unspecified (principal) | CPT/HCPCS: 94060; 94726; 94729 ==

== ENCOUNTER → 2025-10-17 | Outpatient (CLI) | payer MEDICARE, SELFPAY ==
--- NOTE | 2025-10-17 17:23 | RAD_ITS ---
PROCEDURE: ABD INC DECUB AND/OR ERECT 10/17/2025 REASON FOR EXAM: ? CONSTIPATION TECHNIQUE: Procedure Code: [id number] Modality: DX Procedure: ABD INC DECUB AND/OR ERECT COMPARISON: 11/29/2020. FINDINGS: A large amount of stool is noted within the colon. No pathologically dilated loops of bowel to suggest a bowel obstruction. A laminated 1.5 cm rounded calcific density in the right upper quadrant probably represents a gallstone. Moderate degenerative changes are noted within the visualized thoracolumbar spine. RAD/Abd Inc Decub and/or Erect IMPRESSION: As above. Reading Location: [id number]
== END | disposition home or self-care (01) ==
LOC: MTRAD 17:23
PROVIDERS: PCP Family Medicine; Referring Provider Family Medicine; Visit Provider Family Medicine
DX: R10.9 Unspecified abdominal pain (principal)
CPT/HCPCS: 74019